=== PATIENT | female | born 1960 | race Caucasian/White ===

== ENCOUNTER → 2020-07-21 17:32 | Outpatient (CLI) | payer OTHER, SELFPAY ==
[2020-07-21 17:55] LABS: COVID19 -Nasal RAPID Negative (Negative)
== END ==
PROVIDERS: Visit Provider Student in an Organized Health Care Education/Training Program
DX: R05 Cough (principal); Z20.822 Contact with and (suspected) exposure to COVID-19
CPT/HCPCS: 87635